=== PATIENT | female | born 2005 | race Caucasian/White ===

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

== ENCOUNTER 2024-07-09 00:20 | Emergency (ER) | payer OTHER ==
[~2024-07-09] VITALS: Ht 147.3 cm; Wt 45.2 kg
[2024-07-09 00:31] VITALS: TEMP 97.3
[2024-07-09 01:22] LABS: HEMATOCRIT 38.4 % (36.0-47.0); HEMOGLOBIN 12.8 g/dl (12.0-15.5); MEAN CORPUSCULAR HEMOGLOBIN 27.9 pg (27.0-33.0); MEAN CORPUSCULAR HGB CONC 33.3 g/dl (32.0-36.5); MEAN CORPUSCULAR VOLUME 83.7 fl (80.0-96.0); PLATELET COUNT, AUTOMATED 273 10^3/uL (150-450); RED BLOOD COUNT 4.59 10^6/uL (4.00-5.40); WHITE BLOOD COUNT 4.6 10^3/uL (4.0-10.0)
[2024-07-09 01:29] LABS: AMPHETAMINES LEVEL URINE NEGATIVE (NEGATIVE); BARBITURATES URINE NEGATIVE (NEGATIVE); BENZODIAZEPINES URINE NEGATIVE (NEGATIVE); COCAINE METABOLITE URINE NEGATIVE (NEGATIVE); METHADONE URINE NEGATIVE (NEGATIVE); OPIATES URINE NEGATIVE (NEGATIVE)
[2024-07-09 01:30] LABS: CANNABINOIDS URINE POSITIVE (NEGATIVE); PHENCYCLIDINE URINE NEGATIVE (NEGATIVE)
[2024-07-09 01:32] LABS: ETHYL ALCOHOL (ETHANOL) 0.293 % (0.000-0.010)
[2024-07-09 01:34] LABS: ALBUMIN 4.1 G/DL (3.2-5.2); ALKALINE PHOSPHATASE 84 U/L (35-104); ALT/SGPT 14 U/L (7.0-40); AST/SGOT 21 U/L (<34); BILIRUBIN,DIRECT 0.1 MG/DL (<0.4); BILIRUBIN,TOTAL 0.4 MG/DL (0.3-1.2); BLOOD UREA NITROGEN 8 MG/DL (9-23); CALCIUM LEVEL 8.4 MG/DL (8.5-10.1); CARBON DIOXIDE LEVEL 22 MMOL/L (20-31); CHLORIDE LEVEL 111 MMOL/L (98-107); CREATININE FOR GFR 0.51 MG/DL (0.55-1.30); GLUCOSE, FASTING 102 MG/DL (60-100); POTASSIUM SERUM 3.6 MMOL/L (3.5-5.1); SALICYLATE LEVEL < 3.0 MG/DL (<30); SODIUM LEVEL 147 MMOL/L (136-145); TOTAL PROTEIN 7.8 G/DL (5.7-8.2)
[2024-07-09 01:36] LABS: THYROID STIMULATING HORMONE 3.888 uIU/ML (0.48-4.17)
[2024-07-09 05:27] VITALS: BP 123/67; O2SAT 97
== END 2024-07-09 10:23 | disposition home or self-care (01) ==
LOC: M ED 00:20
DX: F10.129 Alcohol abuse with intoxication, unspecified (principal); F31.9 Bipolar disorder, unspecified; F17.200 Nicotine dependence, unspecified, uncomplicated

== ENCOUNTER → 2024-10-04 | Outpatient (CLI) | payer MEDICAID | LOC: M OUTALCOH 08:24 | PROVIDERS: ATTEND Psychiatry & Neurology Psychiatry | DX: F10.20 Alcohol dependence, uncomplicated (principal); F12.10 Cannabis abuse, uncomplicated; Z72.0 Tobacco use ==

== ENCOUNTER 2024-12-14 16:00 | Outpatient (RCR) | payer MEDICAID | END 2024-12-30 | LOC: M OUTALCOH 16:00 | PROVIDERS: ATTEND Psychiatry & Neurology Psychiatry | DX: F10.20 Alcohol dependence, uncomplicated (principal); F12.10 Cannabis abuse, uncomplicated; Z72.0 Tobacco use ==

== ENCOUNTER → 2025-03-15 | Outpatient (CLI) | payer MEDICAID | LOC: M OUTALCOH 08:10 | PROVIDERS: ATTEND Psychiatry & Neurology Psychiatry | DX: F10.20 Alcohol dependence, uncomplicated (principal); F12.10 Cannabis abuse, uncomplicated; Z72.0 Tobacco use ==

== ENCOUNTER 2025-05-21 00:04 | Emergency (ER) | payer MEDICAID, OTHER ==
[2025-05-21] MEDS: HALOPERIDOL LACTATE 5 MG/ML VIAL IM ONE (00:14)
[2025-05-21] MEDS: diphenhydrAMINE 50 MG/ML VIAL IM ONE (00:14)
[2025-05-21] MEDS ORDERED: VITA100T28 PO (00:47)
[2025-05-21] MEDS ORDERED: FOLI1TAB11 PO (00:47)
[2025-05-21 01:28] LABS: PLATELET COUNT, AUTOMATED 309 10^3/uL (150-450)
[2025-05-21 01:49] LABS: ALT/SGPT 17 U/L (7.0-40); AST/SGOT 29 U/L (<34); CALCIUM LEVEL 8.7 MG/DL (8.5-10.1); CARBON DIOXIDE LEVEL 20 MMOL/L (20-31); CHLORIDE LEVEL 113 MMOL/L (98-107); CREATININE FOR GFR 0.59 MG/DL (0.55-1.30); GLOMERULAR FILTRATION RATE > 90.0 (>60); POTASSIUM SERUM 3.4 MMOL/L (3.5-5.1); SALICYLATE LEVEL < 3.0 MG/DL (<30); SODIUM LEVEL 148 MMOL/L (136-145)
[2025-05-21 02:14] LABS: ETHYL ALCOHOL (ETHANOL) 0.328 % (0.000-0.010)
[2025-05-21 06:58] LABS: AMPHETAMINES LEVEL URINE NEGATIVE (NEGATIVE); BARBITURATES URINE NEGATIVE (NEGATIVE); BENZODIAZEPINES URINE NEGATIVE (NEGATIVE); COCAINE METABOLITE URINE NEGATIVE (NEGATIVE); METHADONE URINE NEGATIVE (NEGATIVE); OPIATES URINE NEGATIVE (NEGATIVE); PHENCYCLIDINE URINE NEGATIVE (NEGATIVE)
[2025-05-21 06:59] LABS: CANNABINOIDS URINE POSITIVE (NEGATIVE)
[2025-05-21] MEDS ORDERED: HOME MED LIST COMPLETE! XX SCH (07:40)
[2025-05-21 12:45] VITALS: BP 130/65; TEMP 98.9; O2SAT 99
== END 2025-05-21 12:51 | disposition home or self-care (01) ==
LOC: M ED 00:04
DX: F43.0 Acute stress reaction (principal); F10.129 Alcohol abuse with intoxication, unspecified; F12.10 Cannabis abuse, uncomplicated; E78.5 Hyperlipidemia, unspecified
CPT/HCPCS: 80048; 80076; 80143; 80307; 82077; 84443; 85027; 96372; 99285; J1200; J1630; J2060